=== PATIENT | male | born 2000 | race Caucasian/White ===

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

== ENCOUNTER 2020-01-01 16:56 | Emergency (ER) | payer OTHER, SELFPAY ==
[2020-01-01] VITALS (55 sets, daily range): BP systolic 103–151; BP diastolic 63–107; PULSE 85–107; RESP 12–28; TEMP 36.5–37; O2SAT 89–100
--- NOTE | 2020-01-01 17:01 | W.ED.GENAD ---
Discharge Plan Disposition Patient Disposition: HOME Condition: Improving Discharge Details Chief Complaint: Allergic Clinical Impression: Anaphylactic reaction, Elevated INR Primary Care Provider: None,None ED Provider: Katie Garcia Home Meds and New Rx's Prescriptions: New epinephrine [EpiPen 2-Thony] 0.3 mg/0.3 mL auto-injector 0.3 mg IM Q5-15M PRN (Reason: anaphylaxis) Qty: 2 RF: 0 prednisone 50 mg tablet 50 mg PO DAILY Qty: 4 RF: 0 Continued warfarin [Coumadin] 5 mg Tablet 10 mg PO DAILY RF: 0 magnesium 250 mg Tablet PO HS RF: 0 enalapril maleate 10 mg Tablet 10 mg PO HS RF: 0 Metamucil 3.4 gram/5.4 gram Powder PO QAM RF: 0 Discharge Instructions Instructions: General Allergic Reaction (ED) Additional Instructions: You may use Benadryl as prescribed for any recurrent itching. You may use 1-2 tabs every 4 hours as needed. A new EpiPen has been prescribed. Please carry this with you at all times. Please use if you have any return of your symptoms or stung once again. Also include difficulty breathing, shortness of breath, swelling of your throat. Please take the prednisone as prescribed. This is to help with recurrence. Your INR was elevated at 4.4. Please hold your next 2 doses and discuss further with your primary care. If you develop any new or worsening symptoms please seek care urgently once again. 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 Gentleman bring him in says that he was at his house doing work. States that he witnessed the patient get stung twice by hornets and then self administer 2 EpiPen's in the thigh. Reports on way to the hospital he lost consciousness. Nursing staff and myself evaluated the patient in the car. Immediately placed an oral airway and perform jaw thrust maneuver as the patient was having agonal breathing. He did have a carotid pulse, no radial pulse. Minutes after arrival, while transferring the patient to [facility], he slowly began to regain consciousness. He was noted to be bright red. No wheezing or stridor noted. Once in the room, patient's mentation began to clear. Patient is now alert and oriented, reporting that he was stung twice, once in the head and once in both left wrist, by hornets. States that he began to feel tight in his throat. Self administered the EpiPen x2. 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 At this time, he is denying difficulty breathing, shortness of breath, itching, intraoral lesions, swelling of his throat. Patient was immediately given 50 of Benadryl, 25 mg, 125 of Solu-Medrol. As he improved so quickly, no further epinephrine was delivered. Patient is on a monitor. Will obtain EKG, labs and continue to monitor patient. Contacted patients , Charito- [phone]. Patient continues to feel improved. He was endorsing BHAKTA. Is allergic to tylenol, on warfarin. Will give PO oxycodone Thirty minutes after oxycodone, patient began to feel nauseated, concerned this is from the medication. Farzad give IV zofran. Feelling improved after zofran. BHAKTA has improved. He is drinking water, requesting crackers. AT 2044, patient began to endorse itching in his hands and feet. He is feeling otherwise well. No SOB, difficulty breathing, intraoral coplaints, GI complaints. Plan for atarax to help with itching. Atarax was unsuccessful, augment this with second dose of Benadryl. Patient reports the itching has completely subsided. Patient kept in the department for over 6 hours. For the past 2, he has been asymptomatic. States that he is feeling at his baseline. He does have friends locally who are able to come pick him up. I did discuss improvement with his over the phone once again. Patient will be discharged home with Benadryl as well as another EpiPen. Will prescribe further steroids as well as more EpiPen's. We did discuss avoidance techniques. We discussed that he needs to carry an EpiPen with him at all times. He was given strict return precautions. All questions and concerns were addressed and he is in agreement with this plan. Patient has dual citizenship in the [place] and [place]. He will follow-up with his primary care once back in [place]. HPI General Mode of arrival: wheelchair (unconscious in truck, brought in by staff on stretcher). Date/Time Provider Initiated Documentation: 01/01/20 17:01. Limitations to Documentation: other. Information obtained by: family (bystander who did not know patient). HPI Narrative: Per bystander, patient was witnessed to have 2 wasp stings. Patient self-administered epi pen x 2. Bystander reports that patient self reported known anaphylaxis to wasps. Brought in unconscious in passenger seat of truck. No witnessed trauma. No witnessed drug use. Related Data Home Medications Medication Instructions Recorded Confirmed Metamucil g PO QAM 01/01/20 enalapril maleate 10 mg PO HS 01/01/20 01/01/20 epinephrine [EpiPen 2-Thony] 0.3 mg IM Q5-15M PRN #2 each 01/01/20 magnesium mg PO HS 01/01/20 prednisone 50 mg PO DAILY #4 tab 01/01/20 warfarin [Coumadin] 10 mg PO DAILY 01/01/20 01/01/20 Previous Rx's Medication Instructions Recorded epinephrine [EpiPen 2-Thony] 0.3 mg IM Q5-15M PRN #2 each 01/01/20 prednisone 50 mg PO DAILY #4 tab 01/01/20 Allergies Allergy/AdvReac Type Severity Reaction Status Date / Time acetaminophen AdvReac Intermediate lump in Unverified 01/01/20 17:26 leg wasp Allergy Severe anaphylaxis Uncoded 01/01/20 17:25 Review of Systems Unobtainable due to mental status REPLACED BY [facility] Social History Smoking/Tobacco Use Status: Never Alcohol Intake: current Substance use type: does not use Do you feel safe at home: Yes Do you feel safe in your relationship?: Yes Exam Const General: not healthy appearing, in distress respiratory (Agonal breaths) and ill appearing acutely Nutritional Appearance: average body habitus and well nourished Orientation: alert, awake and oriented x3 HENMT Head: normal to inspection Mouth: moist mucous membranes Chest Chest: normal inspection of the chest, normal palpation of entire chest wall and no crepitus Resp Effort & Inspection: normal respiratory effort, able to speak in complete sentences and no respiratory distress Auscultation: clear to auscultation bilaterally, no rales, no rhonchi and no wheezes Cardio Rate: regular rate Rhythm: regular rhythm Heart Sounds: S1 normal and S2 normal GI Inspection: normal to inspection, no edema and non-distended Palpation: soft, no hepatosplenomegaly, not firm, no guarding, not rigid and nontender Auscultation: normal bowel sounds Back/Spine/Pelvis Back: no CVA tenderness Skin General skin exam: erythema (Entire body is erythematous, blanchable consistent with severe hives) Neuro General: tone abnormal and patient obtunded Extrem General: normal to inspection, capillary refill normal and no pedal edema
[2020-01-01] MEDS: Normal Saline Flush 10 ML SYR IVP (17:10)
[2020-01-01] MEDS: diphenhydrAMINE 50 MG/ML VIAL IVP (17:10)
[2020-01-01] MEDS: FAMOTIDINE 20 MG/50 ML BAG 200 MG IVPB (17:11)
[2020-01-01] MEDS: methylPREDNISolone SUCC 125 MG VIAL IVP (17:11)
[2020-01-01] MEDS: Normal Saline 1,000 ML 1000 ML IV (17:15)
--- NOTE | 2020-01-01 17:15 | RT.EKG_ITS ---
APPROVED REPORT Exam: Resting ECG Patient Location: E HR:99 bpm ECG Measurements Heart Rate 99 AXIS NE 173 P 56 QRSd 90 QRS 37 QT 364 T 45 QTc 468 <Conclusion> Sinus rhythm...normal P axis, V-rate 60- 99 Probable left atrial enlargement...P >50mS, <-0.10mV V1 No acute ST elevation or depression.
[2020-01-01 17:32] LABS: Abs Immature Grans 0.03 k/cumm (0.0-0.09); Absolute Basophil Count 0.01 k/cumm (0.0-0.2); Absolute Eosinophil Count 0.08 k/cumm (0.0-0.7); Absolute Lymphocyte Count 3.95 k/cumm (1.2-3.4); Absolute Monocyte Count 0.53 k/cumm (0.11-0.7); Absolute Neutrophil Count 3.13 k/cumm (1.2-6.7); Basophils % 0.1; HGB 16.2 g/dL (13.5-17.5); Immature Grans % 0.4 %; Lymphocytes % 51.1; Mean Corp. HGB Concentration 35.2 g/dL (32.0-36.0); Mean Corpuscular Hemoglobin 31.3 pg (27.0-33.0); Monocytes % 6.9; Neutrophils % 40.5; Platelet Count 376 x1000/uL (130-400); RBC 5.17 m/cumm (4.50-6.00); RBC Distribution Width 12.6 % (11.8-14.1); White Blood Cell Count 7.73 k/cumm (4.4-10.8)
[2020-01-01 17:48] LABS: ALT 32 U/L (16-63); AST 34 U/L (15-37); Albumin 3.9 g/dL (3.4-5.0); Alkaline Phosphatase 61 U/L (46-116); BUN 18 mg/dL (7-18); CREATININE 1.23 mg/dL (0.70-1.30); Calcium 8.8 mg/dL (8.5-10.1); Chloride 97 mmol/L (98-107); Estimated GFR 57.68 (mL/min/1.73m2); Glucose 180 mg/dL (74-106); Magnesium 1.8 mg/dL (1.8-2.4); Potassium 3.4 mmol/L (3.5-5.1); Sodium 132 mmol/L (136-145); Total Protein 7.2 g/dL (6.4-8.2)
[2020-01-01 17:52] LABS: Troponin I < 0.05 ng/mL (<0.06)
[2020-01-01] MEDS: oxyCODONE 5 MG TAB PO (18:13)
[2020-01-01] MEDS: Ondansetron 4 MG/2 ML VIAL IVP (19:13)
--- NOTE | 2020-01-01 20:00 | RT.EKG_ITS ---
APPROVED REPORT Exam: Resting ECG Patient Location: E HR:86 bpm ECG Measurements Heart Rate 86 AXIS IA 207 P 38 QRSd 90 QRS 6 QT 369 T -12 QTc 441 <Conclusion> Sinus rhythm...normal P axis, V-rate 60- 99, No STEMI
--- NOTE | 2020-01-01 20:25 | NUR.NOTE ---
Nursing Note: Patient complaining of itchiness around ankles and fingers. Updated PA Jose.
[2020-01-01] MEDS: hydrOXYzine HCL 25 MG TAB PO (20:45)
[2020-01-01 20:49] LABS: Troponin I < 0.05 ng/mL (<0.06)
[2020-01-01 20:50] LABS: Prothrombin Time 42.5 sec (9.3-11.0)
[2020-01-01 21:09] LABS: INR 4.4 (0.9-1.1)
[2020-01-01] MEDS: diphenhydrAMINE 50 MG/ML VIAL 25 MG IVP (21:31)
[2020-01-01] MEDS: diphenhydrAMINE 25 MG CAP 75 MG PO (23:14)
[2020-01-01] MEDS: EPINEPHrine 0.3 MG KIT IM (23:14)
== END 2020-01-01 23:37 | disposition home or self-care (01) ==
PROVIDERS: Emergency Provider Physician Assistant
DX: T63.461A Toxic effect of venom of wasps, accidental (unintentional), initial encounter (principal); T78.2XXA Anaphylactic shock, unspecified, initial encounter; R40.20 Unspecified coma; L29.9 Pruritus, unspecified; R79.1 Abnormal coagulation profile; T45.515A Adverse effect of anticoagulants, initial encounter; Z79.01 Long term (current) use of anticoagulants
CPT/HCPCS: 36415; 80053; 93005; 96361; 96372; 96374; 96375; 96376; 99285; 83735; 84484; 85025; 85610; 93010; J0171; J1200; J2405; J2930